=== PATIENT | male | born 1970 | race Caucasian/White ===

== ENCOUNTER 2021-11-17 12:16 | Outpatient (REF) | payer MEDICAID, SELFPAY ==
[2021-11-17 13:07] LABS: Influenza A PCR NEGATIVE (Negative); Influenza B PCR NEGATIVE (Negative); Resp Syncy Virus RNA Qual PCR NEGATIVE (Negative); SARS COV2 PCR INHOUSE POSITIVE (Negative)
== END 2021-11-17 12:17 | disposition home or self-care (01) ==
LOC: HO.LNP 12:16
PROVIDERS: Visit Provider Internal Medicine
DX: Z20.822 Contact with and (suspected) exposure to COVID-19 (principal); R51.9 Headache, unspecified
CPT/HCPCS: 0241U

== ENCOUNTER 2022-08-26 10:53 | Outpatient (REF) | payer MEDICAID, SELFPAY ==
[2022-08-26 11:56] LABS: Influenza A PCR NEGATIVE (Negative); Influenza B PCR NEGATIVE (Negative); Resp Syncy Virus RNA Qual PCR NEGATIVE (Negative); SARS COV2 PCR INHOUSE NEGATIVE (Negative)
== END 2022-08-26 10:54 | disposition home or self-care (01) ==
LOC: HO.LNP 10:53
PROVIDERS: Visit Provider Internal Medicine
DX: Z20.822 Contact with and (suspected) exposure to COVID-19 (principal)
CPT/HCPCS: 0241U

== ENCOUNTER 2023-04-14 11:49 | Outpatient (REF) | payer MEDICAID, SELFPAY ==
[2023-04-14 12:18] LABS: MANUAL DIFF FLAG NO
[2023-04-14 13:01] LABS: Basophils Percent Auto 0.4 % (0-2); Eosinophils Absolute Auto 0.2 X10*3/uL (0.0-0.4); Eosinophils Percent Auto 3.1 % (0-4); Hematocrit 44.2 % (42.0-52.0); Hemoglobin 15.2 g/dl (14.0-18.0); Imm Gran Abs Auto 0.06 X10*3/uL (0.00-0.03); Imm Gran Pct Auto 0.9 % (0.0-0.4); Lymphocytes Absolute Auto 1.3 X10*3/uL (1.2-4.9); Lymphocytes Percent Auto 18.4 % (20-40); Mean Corpuscular HGB Conc 34.4 g/dl (31.0-36.0); Mean Corpuscular Hemoglobin 29.9 pg (27.0-33.0); Mean Platelet Volume 11.1 fL (9.4-12.4); Monocytes Absolute Auto 0.6 X10*3/uL (0.1-1.2); Monocytes Percent Auto 8.3 % (2-11); Neutrophils Absolute Auto 4.7 x10*3/uL (2.0-8.3); Neutrophils Percent Auto 68.9 % (45-73); Platelet Count 195 X10*3/uL (160-400); Red Blood Count 5.08 X10*6/uL (4.60-5.80); White Blood Count 6.8 X10*3/uL (4.8-10.8)
[2023-04-14 13:13] LABS: Appearance Urine Clear; Color Urine Yellow; Glucose Urine UA Negative (Negative); Leukocyte Esterase Urine Negative (Negative); Nitrite Urine Negative (Negative); Urine Blood Negative (Negative); Urine Ketones Negative (Negative); Urine Protein Negative (Neg-Trace)
[2023-04-14 13:25] LABS: Alanine Aminotransferase 30 U/L (0-40); Albumin Level 3.9 g/dL (3.5-5.0); Alkaline Phosphatase 116 U/L (39-117); Anion Gap 13 (12-20); Aspartate Amino Transferase 22 U/L (5-37); Bilirubin Total 0.5 mg/dL (0.0-1.0); Blood Urea Nitrogen 13 mg/dL (9-16); Carbon Dioxide 25 mmol/L (22-29); Chloride 107 mmol/L (96-108); Cholesterol 177 mg/dL; Estimated Glomerular Filt Rate > 60; Glucose Random 145 mg/dL (60-115); Potassium 4.6 mmol/L (3.3-5.1); Sodium 140 mmol/L (135-145); Total Protein 6.6 g/dL (6.5-8.0)
== END 2023-04-14 11:50 | disposition home or self-care (01) ==
LOC: HO.LAB 11:49
PROVIDERS: PCP Internal Medicine; Visit Provider Internal Medicine
DX: M54.9 Dorsalgia, unspecified (principal); M54.2 Cervicalgia; R63.5 Abnormal weight gain; J44.9 Chronic obstructive pulmonary disease, unspecified; Z91.81 History of falling
CPT/HCPCS: 36415; 80053; 81003; 82465; 85025

== ENCOUNTER 2023-05-11 10:38 | Outpatient (REF) | payer MEDICAID, SELFPAY ==
--- NOTE | ~2023-05-11 | XR_ITS ---
EXAMINATION: XR PELVIS CLINICAL INFORMATION: Low back and joint pain. COMPARISON: None available. TECHNIQUE: AP view of the pelvis. FINDINGS: There is no evidence of acute fracture or diastasis of the pelvis. There are linear low-density regions seen about the intertrochanteric location of the proximal left femur but these do not appear to cross cortices and are probably related to overlying soft tissues. Clinical correlation with possible recent left hip trauma is recommended. Sacroiliac joints appear unremarkable. Hip joint spaces are maintained. There appears be some mild facet arthropathy bilaterally at the L5-S1 level. No abnormal lytic or sclerotic lesions are appreciated. XR/XR pelvis 1-2V IMPRESSION: No significant bony abnormalities of the pelvis. Linear lucency about the left proximal femur likely related to overlying soft tissues as described.
[2023-05-11 11:28] LABS: Estimated Average Glucose 100 mg/dL; Hemoglobin A1c % 5.1 %
[2023-05-11 12:01] LABS: Anion Gap 13 (12-20); Blood Urea Nitrogen 15 mg/dL (9-16); Calcium 9.3 mg/dL (8.4-10.2); Carbon Dioxide 24 mmol/L (22-29); Chloride 107 mmol/L (96-108); Estimated Glomerular Filt Rate > 60; Glucose Random 112 mg/dL (60-115); Potassium 4.3 mmol/L (3.3-5.1); Sodium 140 mmol/L (135-145)
== END 2023-05-11 10:39 | disposition home or self-care (01) ==
LOC: HO.LAB 10:38
PROVIDERS: PCP Internal Medicine; Visit Provider Internal Medicine
DX: M54.50 Low back pain, unspecified (principal); R73.03 Prediabetes; M53.3 Sacrococcygeal disorders, not elsewhere classified
CPT/HCPCS: 36415; 72170; 80048; 83036

== ENCOUNTER 2023-08-02 10:34 | Outpatient (AMB) | payer MEDICAID, SELFPAY ==
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
== END 2023-08-02 12:22 | disposition home or self-care (01) ==
PROVIDERS: PCP Internal Medicine; Visit Provider Physician Assistant
DX: S42.254A Nondisplaced fracture of greater tuberosity of right humerus, initial encounter for closed fracture (principal)
CPT/HCPCS: 99204

== ENCOUNTER 2023-08-02 11:17 | Outpatient (REF) | payer MEDICAID, SELFPAY ==
--- NOTE | ~2023-08-02 | XR_ITS ---
EXAMINATION: XR RIGHT HUMERUS, RIGHT ELBOW CLINICAL INFORMATION: Pain in unspecified elbow, humerus. COMPARISON: None available. TECHNIQUE: 4 views of the right elbow. 2 views of the right humerus. FINDINGS: Right humerus: There is an impacted, displaced, comminuted fracture involving the humeral head/neck. Right elbow: Tiny olecranon spur. 4 mm linear densities overlying the soft tissues along the soft tissues of the dorsal aspect of the upper forearm/elbow. Alignment preserved. XR/XR humerus RT IMPRESSION: 1. Impacted, displaced, comminuted fracture involving the humeral head/neck. 2. Possible foreign body along the soft tissues of the dorsal aspect of the upper forearm/elbow. Correlation with the clinical exam recommended. Additional imaging with CT scan or MRI should be considered for better visualization as these modalities are much more sensitive for detection of fracture or other underlying pathology. This study was presented today 08/03/2023 at 10:17 AM for interpretation. [facility] staff will provide results to referring provider at this time.
--- NOTE | ~2023-08-02 | XR_ITS ---
EXAMINATION: XR RIGHT HUMERUS, RIGHT ELBOW CLINICAL INFORMATION: Pain in unspecified elbow, humerus. COMPARISON: None available. TECHNIQUE: 4 views of the right elbow. 2 views of the right humerus. FINDINGS: Right humerus: There is an impacted, displaced, comminuted fracture involving the humeral head/neck. Right elbow: Tiny olecranon spur. 4 mm linear densities overlying the soft tissues along the soft tissues of the dorsal aspect of the upper forearm/elbow. Alignment preserved. XR/XR elbow RT min 3V IMPRESSION: 1. Impacted, displaced, comminuted fracture involving the humeral head/neck. 2. Possible foreign body along the soft tissues of the dorsal aspect of the upper forearm/elbow. Correlation with the clinical exam recommended. Additional imaging with CT scan or MRI should be considered for better visualization as these modalities are much more sensitive for detection of fracture or other underlying pathology. This study was presented today 08/03/2023 at 10:17 AM for interpretation. [facility] staff will provide results to referring provider at this time.
== END 2023-08-02 11:18 | disposition home or self-care (01) ==
LOC: HO.HOSX 11:17
PROVIDERS: Visit Provider Physician Assistant
DX: S42.254A Nondisplaced fracture of greater tuberosity of right humerus, initial encounter for closed fracture (principal); M25.521 Pain in right elbow
CPT/HCPCS: 73060; 73080; 99212

== ENCOUNTER 2023-08-03 13:15 | Outpatient (REF) | payer MEDICAID, SELFPAY ==
--- NOTE | ~2023-08-03 | CT_ITS ---
EXAMINATION: CT SHOULDER WITHOUT CONTRAST, RIGHT CLINICAL INFORMATION: M12.819 - Other specific arthropathies, not elsewhere classified, unspecified shoulder. Right shoulder pain. Fracture. COMPARISON: Radiograph dated 08/02/2023. TECHNIQUE: Multidetector volumetric imaging was obtained through the right shoulder without contrast. Multiplanar reformatted images in coronal and sagittal orientations were submitted. This CT examination was performed using dose optimization techniques as appropriate, variously including the following: *Automated exposure control *Adjustment of mA and/or kV according to patient size (this includes techniques or standardized protocols for targeted exams where dose is matched to indication/reason for exam; i.e. extremities or head) *Use of iterative reconstruction technique DLP: 283 mGy-cm FINDINGS: Again seen is a comminuted proximal humeral fracture with components at the humeral neck, greater tuberosity, and lesser tuberosity. The oblique humeral neck component is not significantly displaced. The lesser tuberosity fragment is displaced medially by 1.1 cm relative to the humeral head articular fragment resulting in an articular cortical step-off along the anterior aspect of the humeral head. The humeral head component appears impacted into the greater and lesser tuberosity fragments. At the greater tuberosity, there is posterior displacement of the more posterior fragment by 1.4 cm relative to the more anterior components of the greater tuberosity which remain connected to the lesser tuberosity fragment around the bicipital groove. No additional fractures are identified. No scapular fractures. The glenoid, acromion, and coracoid process are intact. Right clavicle is normal. Imaged right chest wall is intact. Rotator cuff musculature appears normal in bulk. There is edema in the surrounding fascial planes at the right shoulder with a trace effusion. No axillary adenopathy. Minimal centrilobular emphysema at the right apex with small areas of peripheral pleural parenchymal scarring. CT/CT shoulder RT wo IV con IMPRESSION: Comminuted proximal humeral fracture, likely a Neer three-part fracture due to displacement at the greater and lesser tuberosity fragments. The humeral neck component of the fracture is not significantly displaced.
== END 2023-08-03 13:16 | disposition home or self-care (01) ==
LOC: HO.CT 13:15
PROVIDERS: Visit Provider Physician Assistant
DX: M12.811 Other specific arthropathies, not elsewhere classified, right shoulder (principal)
CPT/HCPCS: 73200

== ENCOUNTER 2023-08-13 10:04 | Outpatient (AMB) | payer MEDICAID, SELFPAY ==
--- NOTE | 2023-08-13 10:07 | A.OFFVIS_ITS ---
Intake Vital Signs 08/13/23 10:13 Height 5 ft 9 in Weight 200 lb BMI 29.5 Intake Visit Reasons: OV - Rt humerus fx, DOI 07/21/23 Intake Note: Miguelito is a 52 year old right hand dominant male for a evaluation for his right humerus fx, DOI 07/21/23. Patient reports ongoing pain. He states off and on tingling when he moves it. Patient reports that when he was working he felt a nerve was pinched. Allergies No Known Allergies Allergy (Verified 08/13/23 10:07) HPI OV - Rt humerus fx, DOI 07/21/23 HPI Details 52-year-old right hand dominant male who presents in the office today for a follow up of a right greater tuberosity fracture and review of his CT scan. The injury occurred on 07/14/2023. The patient reports having ongoing pain. He confirms intermittent tingling with ROM. He states when he was working he felt the nerve pinching. He states he can feel sensation in his right hand but feels it goes numb intermittently. He states he has been off work for the and has had no relief in the right upper extremity. He confirms he has been working on gentle ROM. The patient expresses concerns about his right elbow. He states his elbow does not feel right. He confirms smoking a pack of cigarettes a day. 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 The patient states he never took the oxycodone. He would like to request a prescription for percocet. Review of Systems Const All systems reviewed & are unremarkable except as noted in HPI and below Physical Exam Vital Signs: BMI result Body Mass Index 29.5 Const General: cooperative, healthy appearing and no acute distress Orientation/consciousness: patient oriented x3 Resp Effort & Inspection: normal respiratory effort and able to speak in complete sentences Cardio Rate: regular rate Peripheral pulses: Peripheral pulses 2+ throughout GI Palpation (GI): Soft to palpation Skin General skin exam: no rashes or lesions noted Lesions: no lesions Rashes: no rashes Neuro General: patient oriented x3 Extrem Other: Right upper extremity: Circumferential edema extending around the bicep, Resolving ecchymosis bicep area. Able to flex and extend at the wrist. Able to perform wrist and hand ROM, including wrist extension and thumbs up. Slight forward flexion and abduction, but limited due to pain. Sensation intact. Radial pulse intact. Assessment & Plan Assessment & Plan (1) Fracture of greater tuberosity of right humerus: Code(s): S42.251A - Displaced fracture of greater tuberosity of right humerus, initial encounter for closed fracture Qualifiers: Encounter type: initial encounter Fracture alignment: nondisplaced Fracture type: closed Qualified Code(s): S42.254A - Nondisplaced fracture of greater tuberosity of right humerus, initial encounter for closed fracture Plan Mr. Barahona is a 52-year-old right hand dominant male who presents in the office today for a follow up of a right greater tuberosity fracture and review of his CT scan. The injury occurred on 07/14/2023. The patient reports having ongoing pain. He confirms intermittent tingling with ROM. He states when he was working he felt the nerve pinching. He states he can feel sensation in his right hand but feels it goes numb intermittently. He states he has been off work for the past week and has had no relief in the right upper extremity. He confirms he has been working on gentle ROM. The patient expresses concerns about his right elbow. He states his elbow does not feel right. He confirms smoking a pack of cigarettes a day. 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 The patient states he never took the oxycodone. He would like to request a prescription for percocet. Dr. Harris was available to see the patient with me while in the office today and a collaborative treatment plan was made. Dr. Harris discussed that the edema is causing his arm to feel off like the patient has been stating he feels. We discussed the role of conservative treatment verses surgical intervention. The patient states he would prefer not to have surgery. I sent in a prescription for percocet 5-325 mg PO daily PRN to be taken at bedtime. The patient was educated this prescription was a one time fill. Follow up will be in 4 weeks, or sooner if needed. X-rays of the right shoulder obtained while in the office today and reviewed by me, Helene Lambert PA-C, redemonstrated a right proximal humerus fracture. CT of the right shoulder, obtained on 08/03/2023, revealed: Comminuted proximal humeral fracture, likely a Neer three-part fracture due to displacement at the greater and lesser tuberosity fragments. The humeral neck component of the fracture is not significantly displaced. Orders: Orders XR shoulder RT min 2V Today M25.519 - Pain in unspecified shoulder Medications: New oxycodone-acetaminophen 5-325 mg (Percocet) Partial Fill upon patient request. 1 tab PO DAILY PRN 7 tabs 0RF pain 7 days Patient Instructions: Scribed for Helene Lambert PA-C by Nelly Mon medical transcription supervisor, on 08/13/2023 at 10:10 am, EST. Coding Level of Care Code Est Pt Level 4 (30969) Diagnoses Closed nondisplaced fracture of greater tuberosity of right humerus, initial encounter S42.254A Encounter type: initial encounter Fracture alignment: nondisplaced Fracture type: closed
[2023-08-13 10:13] VITALS: BMI 29.5
== END 2023-08-13 11:19 | disposition home or self-care (01) ==
PROVIDERS: PCP Internal Medicine; Visit Provider Physician Assistant
DX: S42.254A Nondisplaced fracture of greater tuberosity of right humerus, initial encounter for closed fracture (principal)
CPT/HCPCS: 99214

== ENCOUNTER 2023-08-13 10:04 | Outpatient (REF) | payer MEDICAID, SELFPAY ==
--- NOTE | ~2023-08-13 | XR_ITS ---
EXAMINATION: XR SHOULDER, RIGHT CLINICAL INFORMATION: Pain in shoulder. COMPARISON: Prior imaging studies including CT scan of the right shoulder July 2023 and x-ray of the right humerus 08/02/2023. TECHNIQUE: 2 AP views of the right shoulder. FINDINGS: The comminuted proximal humerus fracture redemonstrated with unchanged appearance and alignment. No callus formation identified. Persistent lateral displacement of the greater tuberosity fragment which extends into the proximal metaphysis of the humerus. Persistent displacement of the lesser tuberosity fragment. Acromioclavicular joint normal. Surrounding bone and soft tissues unremarkable. XR/XR shoulder RT min 2V IMPRESSION: No change in the appearance of the comminuted proximal humerus fracture.
== END 2023-08-13 10:05 | disposition home or self-care (01) ==
LOC: HO.HOSX 10:04
PROVIDERS: PCP Internal Medicine; Visit Provider Physician Assistant
DX: S42.254A Nondisplaced fracture of greater tuberosity of right humerus, initial encounter for closed fracture (principal); X58.XXXA Exposure to other specified factors, initial encounter; Y93.9 Activity, unspecified; Y92.9 Unspecified place or not applicable; Y99.9 Unspecified external cause status
CPT/HCPCS: 73030; 99212

== ENCOUNTER 2023-09-09 08:55 | Outpatient (AMB) | payer MEDICAID, SELFPAY ==
[2023-09-09 09:19] VITALS: BMI 29.5
--- NOTE | 2023-09-09 09:19 | A.OFFVIS_ITS ---
Intake Vital Signs 09/09/23 09:19 Height 5 ft 9 in Weight 200 lb BMI 29.5 Intake Visit Reasons: OV-Rt humerus fx, DOI 07/21/23 Intake Note: Miguelito is a 52 year old right hand dominant male who presents today for his follow up visit for his right humerus fx, DOI 07/21/23. Patient states he has tightness in the shoulder. Allergies No Known Allergies Allergy (Verified 09/09/23 09:21) HPI OV-Rt humerus fx, DOI 07/21/23 HPI Details 53-year-old male who presents in the off ice today for a follow up of a right greater tuberosity fracture which occurred on 07/14/2023. The patient reports he is doing pretty good. He states he did not get a call from physical therapy so he began to work on exercises at home. He states he has been working on a weight machine pushing and pulling. He states he does not have pain but does feel a tightness in the right shoulder. He states he is getting headaches from the Percocet. Review of Systems Const All systems reviewed & are unremarkable except as noted in HPI and below Physical Exam Vital Signs: BMI result Body Mass Index 29.5 Const General: cooperative, healthy appearing and no acute distress Resp Effort & Inspection: normal respiratory effort and able to speak in complete sentences Cardio Rate: regular rate Peripheral pulses: Peripheral pulses 2+ throughout GI Palpation (GI): Soft to palpation Skin Lesions: no lesions Rashes: no rashes Extrem Other: Right shoulder: Forward flexion to 100 degrees. Abduction to 80 degrees. Avoided external rotation. Sensation intact. Radial pulse intact. Assessment & Plan Assessment & Plan (1) Fracture of greater tuberosity of right humerus: Code(s): S42.251A - Displaced fracture of greater tuberosity of right humerus, initial encounter for closed fracture Qualifiers: Encounter type: initial encounter Fracture alignment: nondisplaced Fracture type: closed Qualified Code(s): S42.254A - Nondisplaced fracture of greater tuberosity of right humerus, initial encounter for closed fracture Plan: Mr. Barahona is a 53-year-old male who presents in the office today for a follow up of a right greater tuberosity fracture which occurred on 07/14/2023. The patient reports he is doing pretty good. He states he did not get a call from physical therapy so he began to work on exercises at home. He states he has been working on a weight machine pushing and pulling. He states he does not have pain but does feel a tightness in the right shoulder. He states he is getting headaches from the Percocet. I discussed with the patient that I would like for him to call me and let me know if he has issues with getting a hold of physical therapy. He was given my card while in the office today. He was educated on at home exercises that are appropriated to do with the weight machine that only work on ROM with no s trengthening at this time. He was given a prescription to take with him for the physical therapy facility he would like to attend in [place]. Follow up will be in 6 weeks with repeat x-rays, or sooner if needed. X-rays of the right shoulder obtained while in the office today and reviewed by me, Helene Lambert PA-C, revealed routine healing of a right great tuberosity fracture. Plan Mr. Barahona is a 53-year-old male who presents in the office today for a follow up of a right greater tuberosity fracture which occurred on 07/14/2023. The patient reports he is doing pretty good. He states he did not get a call from physical therapy so he began to work on exercises at home. He states he has been working on a weight machine pushing and pulling. He states he does not have pain but does feel a tightness in the right shoulder. He states he is getting headaches from the Percocet. I discussed with the patient that I would like for him to call me and let me know if he has issues with getting a hold of physical therapy. He was given my card while in the office today. He was educated on at home exercises that are appropriated to do with the weight machine. He was given a prescription to take with him for the physical therapy facility he would like to attend in [place]. Follow up will be in 6 weeks with repeat x-rays, or sooner if needed. X-rays of the right shoulder obtained while in the office today and reviewed by me, Helene Lambert PA-C, revealed routine healing of a right great tuberosity fracture. Orders: Orders XR shoulder RT min 2V Today M25.519 - Pain in unspecified shoulder PT Evaluation and Treatment Today S42.251A - Displaced fracture of greater tuberosity of right humerus, initial encounter for closed fracture Patient Instructions: Scribed for Helene Lambert PA-C by Nelly Mon medical laboratory scientist, on 09/09/2023 at 9:01 am, EST. Coding Level of Care Code Global (11800) Diagnoses Closed nondisplaced fracture of greater tuberosity of right humerus, initial encounter S42.254A Encounter type: initial encounter Fracture alignment: nondisplaced Fracture type: closed
== END 2023-09-09 09:32 | disposition home or self-care (01) ==
PROVIDERS: PCP Internal Medicine; Visit Provider Physician Assistant
DX: S42.254A Nondisplaced fracture of greater tuberosity of right humerus, initial encounter for closed fracture (principal)
CPT/HCPCS: 99213

== ENCOUNTER 2023-09-09 15:05 | Outpatient (REF) | payer MEDICAID, SELFPAY ==
--- NOTE | ~2023-09-09 | XR_ITS ---
EXAMINATION: XR SHOULDER, RIGHT CLINICAL INFORMATION: Pain in unspecified shoulder COMPARISON: 08/13/2023 TECHNIQUE: Three views of the right shoulder. FINDINGS: Redemonstration of a comminuted fracture of the proximal humerus with displacement of the greater tuberosity fragment extending into the proximal metaphysis of the humerus and displacement of the lesser tuberosity fragment. Fracture lines are still visible, but less conspicuous, suggesting some interval callus formation. XR/XR shoulder RT min 2V IMPRESSION: Healing comminuted fracture of the humeral head.
== END 2023-09-09 15:06 | disposition home or self-care (01) ==
LOC: HO.HOSX 15:05
PROVIDERS: Visit Provider Physician Assistant
DX: S42.251D Displaced fracture of greater tuberosity of right humerus, subsequent encounter for fracture with routine healing (principal); X58.XXXD Exposure to other specified factors, subsequent encounter; Z79.891 Long term (current) use of opiate analgesic
CPT/HCPCS: 73030; 99212

== ENCOUNTER 2023-10-21 09:33 | Outpatient (REF) | payer MEDICAID, SELFPAY ==
--- NOTE | ~2023-10-21 | XR_ITS ---
EXAMINATION: XR SHOULDER, RIGHT CLINICAL INFORMATION: Pain in unspecified shoulder. COMPARISON: 09/09/2023, 08/13/2023. TECHNIQUE: Three views of the right shoulder. FINDINGS: Multiple linear/wire-like devices overlie the soft tissues of the right upper arm/thorax. Correlation with clinical exam recommended to determine significance. Redemonstration of a comminuted fracture of the proximal humerus with displacement of the greater tuberosity fragment extending into the proximal metaphysis of the humerus and displacement of the lesser tuberosity fragment. The fracture lines are still visible with some callus formation. XR/XR shoulder RT min 2V IMPRESSION: Healing comminuted fracture of the humeral head.
== END 2023-10-21 09:34 | disposition home or self-care (01) ==
LOC: HO.HOSX 09:33
PROVIDERS: Visit Provider Physician Assistant
DX: S42.254A Nondisplaced fracture of greater tuberosity of right humerus, initial encounter for closed fracture (principal)
CPT/HCPCS: 73030; 99212

== ENCOUNTER 2023-10-21 13:10 | Outpatient (AMB) | payer MEDICAID, SELFPAY ==
--- NOTE | 2023-10-21 13:26 | MHC.OFFVIS ---
Intake Vital Signs 10/21/23 13:27 Height 5 ft 9 in Weight 200 lb BMI 29.5 Intake Visit Reasons: OV-Rt humerus fx, DOI 07/21/23-Xrays Intake Note: Miguelito is a 52 year old right hand dominant male who presents today for his follow up visit for his right humerus fx, DOI 07/21/23. Patient states he is doing well and has started P.T. Allergies No Known Allergies Allergy (Verified 10/21/23 13:27) HPI OV-Rt humerus fx, DOI 07/21/23-Xrays HPI Details 53-year-old right hand dominant male who presents in the office today for a follow up of a right greater tuberosity fracture which occurred on 07/14/2023. The patient states he is doing well. He confirms he has started physical therapy. Review of Systems Const All systems reviewed & are unremarkable except as noted in HPI and below Physical Exam Vital Signs: BMI result Body Mass Index 29.5 Const General: cooperative, healthy appearing and no acute distress Resp Effort & Inspection: normal respiratory effort and able to speak in complete sentences Cardio Rate: regular rate Peripheral pulses: Peripheral pulses 2+ throughout GI Palpation (GI): Soft to palpation Skin Lesions: no lesions Rashes: no rashes Extrem Other: Right shoulder: Forward flexion and abduction to 90 degrees. External rotation to 45 degrees. Able to reach back pocket. Able to reach the top of her head. NVI. Assessment & Plan Assessment & Plan (1) Fracture of greater tuberosity of right humerus: Code(s): S42.251A - Displaced fracture of greater tuberosity of right humerus, initial encounter for closed fracture Qualifiers: Encounter type: initial encounter Fracture alignment: nondisplaced Fracture type: closed Qualified Code(s): S42.254A - Nondisplaced fracture of greater tuberosity of right humerus, initial encounter for closed fracture Plan Mr. Barahona is a 53-year-old right hand dominant male who presents in the office today for a follow up of a right greater shoulder tuberosity fracture which occurred on 07/14/2023. The patient states he is doing well. He confirms he has started physical therapy. The patient will continue to work with physical therapy to maximize her ROM until she has completed all sessions. Then I would like for her to continue to work on the home exercise program. I offered the patient a follow up appointment in 6 weeks, however, at this time he is happy with his progress therefore he would like to defer at this time. Follow up will be PRN, or sooner if needed. X-rays of the right hip which were obtained while in the office today and were reviewed by me, Helene Lambert PA-C, revealed routine healing of a right greater shoulder tuberosity fracture. Orders: Orders XR shoulder RT min 2V 10/21/23 M25.519 - Pain in unspecified shoulder Patient Instructions: Scribed for Helene Lambert PA-C by Nelly Mon medical research assistant, on 10/21/2023 at 1:40 pm, EST. Coding Level of Care Code Global (86723) Diagnoses Closed nondisplaced fracture of greater tuberosity of right humerus, initial encounter S42.254A Encounter type: initial encounter Fracture alignment: nondisplaced Fracture type: closed
[2023-10-21 13:27] VITALS: BMI 29.5
== END 2023-10-21 14:05 | disposition home or self-care (01) ==
PROVIDERS: PCP Internal Medicine; Visit Provider Physician Assistant
DX: S42.254D Nondisplaced fracture of greater tuberosity of right humerus, subsequent encounter for fracture with routine healing (principal)
CPT/HCPCS: 99213

== ENCOUNTER 2024-02-15 10:07 | Outpatient (AMB) | payer MEDICAID, SELFPAY ==
--- NOTE | 2024-02-15 10:22 | A.OFFVIS_ITS ---
Intake Intake Visit Reasons: OV - right humerus fx, DOI 07/21/23 Intake Note: Miguelito is a 53 year old right hand dominant male who presets today for a follow of his right humerus fx, DOI 07/21/23. Patient reports that he noticed that his pain goes up to his neck when he is stretching his arm. He states that he is unable to sleep on his right side which woke him up. Patient noticed that his pain is causing him to have migraines. PT is not providing him with relief per patient. Allergies No Known Allergies Allergy (Verified 02/15/24 10:26) HPI OV - right humerus fx, DOI 07/21/23 HPI Details 53-year-old right hand dominant male who presents in the office today for a follow up of a right shoulder greater tuberosity fracture, which occurred on 07/14/2023. I last saw the patient in the office on 10/21/2023. At that time he was encouraged to continue to work with physical therapy to maximize his ROM and then to continue to work on the home exercise program. While in the office today the patient reports he notices his pain radiates to his neck when he is stretching his arm. He states he is unable to sleep at night due to the pain on the right side waking him up. He claims the shoulder pain is causing him to have migraines. He states PT is not giving him any relief. Review of Systems Const All systems reviewed & are unremarkable except as noted in HPI and below Physical Exam Const General: cooperative, healthy appearing and no acute distress Resp Effort & Inspection: normal respiratory effort and able to speak in complete sentences Cardio Rate: regular rate Peripheral pulses: Peripheral pulses 2+ throughout GI Palpation (GI): Soft to palpation Skin Lesions: no lesions Rashes: no rashes Extrem Other: Right shoulder: Forward flexion and abduction to 90 degrees. Pain with cross- body reach. Negative drop arm. NVI. Assessment & Plan Assessment & Plan (1) Fracture of greater tuberosity of right humerus: Code(s): S42.251A - Displaced fracture of greater tuberosity of right humerus, initial encounter for closed fracture Qualifiers: Encounter type: initial encounter Fracture alignment: nondisplaced Fracture type: closed Qualified Code(s): S42.254A - Nondisplaced fracture of greater tuberosity of right humerus, initial encounter for closed fracture Plan Mr. Barahona is a 53-year-old right hand dominant male who presents in the office today for a follow up of a right shoulder greater tuberosity fracture, which occurred on 07/14/2023. I last saw the patient in the office on 10/21/2023. At that time he was encouraged to continue to work with physical therapy to maximize his ROM and then to continue to work on the home exercise program. While in the office today the patient reports he notices his pain radiates to his neck when he is stretching his arm. He states he is unable to sleep at night due to the pain on the right side waking him up. He claims the shoulder pain is causing him to have migraines. He states PT is not giving him any relief. Patient is requesting an MRI at this time, which I have ordered today. I would like for him to follow up with Dr. Harris after the MRI is obtained. The patient would like to discuss possible surgical intervention to correct his ROM and pain. Follow up will be with Dr. Harris after the MRI is obtained, or sooner if needed. X-rays of the right shoulder which were obtained while in the office today and were reviewed by me, Helene Lambert PA-C, revealed evidence of healed greater tuberosity fracture. Orders: Orders XR shoulder RT min 2V Today M25.519 - Pain in unspecified shoulder MR shoulder RT wo con Today S42.201A - Unspecified fracture of upper end of right humerus, initial encounter for closed fracture, S42.251A - Displaced fracture of greater tuberosity of right humerus, initial encounter for closed fracture Patient Instructions: Scribed by Nelly Mon medical communication specialist, for Helene Lambert PA-C on 02/15/2024 at 10:17 am, EST. Coding Level of Care Code Est Pt Level 3 (69250) Diagnoses Closed nondisplaced fracture of greater tuberosity of right humerus, initial encounter S42.254A Encounter type: initial encounter Fracture alignment: nondisplaced Fracture type: closed
== END 2024-02-15 10:43 | disposition home or self-care (01) ==
PROVIDERS: PCP Internal Medicine; Visit Provider Physician Assistant
DX: S42.254A Nondisplaced fracture of greater tuberosity of right humerus, initial encounter for closed fracture (principal)
CPT/HCPCS: 99213

== ENCOUNTER 2024-02-15 11:13 | Outpatient (REF) | payer MEDICAID, SELFPAY ==
--- NOTE | ~2024-02-15 | XR_ITS ---
EXAMINATION: XR SHOULDER, RIGHT CLINICAL INFORMATION: Shoulder pain COMPARISON: 10/21/2023 TECHNIQUE: 2 views of the right shoulder. FINDINGS: Comminuted proximal humeral fracture again identified with slightly less conspicuous appearance of the subcapital fracture line. Greater tuberosity fragment displacement extending into the proximal metaphysis is stable in appearance. Humeral head remains seated in the glenoid. No acute fracture or dislocation. Visualized lung and ribs are unremarkable. XR/XR shoulder RT min 2V IMPRESSION: Healing comminuted proximal right humeral fracture.
== END 2024-02-15 11:14 | disposition home or self-care (01) ==
LOC: HO.HOSX 11:13
PROVIDERS: Visit Provider Physician Assistant
DX: S42.254D Nondisplaced fracture of greater tuberosity of right humerus, subsequent encounter for fracture with routine healing (principal); M25.511 Pain in right shoulder; X58.XXXD Exposure to other specified factors, subsequent encounter
CPT/HCPCS: 73030; 99212

== ENCOUNTER 2024-03-11 11:01 | Outpatient (REF) | payer MEDICAID, SELFPAY ==
--- NOTE | ~2024-03-11 | MR_ITS ---
EXAMINATION: MR SHOULDER WITHOUT CONTRAST, RIGHT CLINICAL INFORMATION: Displaced greater tuberosity, fracture right humerus. COMPARISON: Prior x-rays, including 02/15/2024. TECHNIQUE: MRI of the shoulder without contrast was performed on a high-field scanner. FINDINGS: ROTATOR CUFF: Mild supraspinatus tendinosis. Possible 2 mm intrasubstance tear in the distal posterior fibers. Infraspinatus, teres minor is intact. Mild-moderate subscapularis tendinosis, deep surface fraying. No muscle atrophy or fatty infiltration. BICEPS: Intact CORACOACROMIAL ARCH: The undersurface of the acromion is mildly curved with no subacromial spur. Mild acromioclavicular arthritis. LABRUM/CAPSULE: No labral tear is seen. Intact inferior capsule. GLENOHUMERAL JOINT/MARROW: Healing comminuted proximal humeral fracture, stable in position and alignment as compared to the prior radiographs. No significant chondral loss. No significant effusion. MR/MR shoulder RT wo con IMPRESSION: 1. Mild supraspinatus tendinosis. Possible 2 mm intrasubstance tear in the distal posterior fibers. 2. Mild-moderate subscapularis tendinosis, deep surface fraying. 3. Healing comminuted proximal humeral fracture. 4. Mild acromioclavicular arthritis.
== END 2024-03-11 11:02 | disposition home or self-care (01) ==
LOC: HO.MRI 11:01
PROVIDERS: PCP Internal Medicine; Visit Provider Physician Assistant
DX: S42.251A Displaced fracture of greater tuberosity of right humerus, initial encounter for closed fracture (principal); X58.XXXA Exposure to other specified factors, initial encounter; Y93.9 Activity, unspecified; Y92.9 Unspecified place or not applicable; Y99.9 Unspecified external cause status
CPT/HCPCS: 73221

== ENCOUNTER 2024-03-30 10:11 | Outpatient (AMB) | payer MEDICAID, SELFPAY ==
--- NOTE | 2024-03-30 10:35 | MHC.OFFVIS ---
Intake Visit Reasons: O/V right humerus fx, DOI 07/21/23 MRI rev Allergies No Known Allergies Allergy (Verified 02/15/24 10:26) HPI HPI O/V right humerus fx, DOI 07/21/23 MRI rev: Details: Miguelito is a 53 year old right hand dominant male who presets today for an MRI review of his right humerus fx, DOI 07/21/23. Patient reports that his pain is increasing, he had popping and grinding of the shoulder. He feels unable to sleep well at night has pain with overhead reaching. Physical Exam Const General: cooperative, healthy appearing and no acute distress Resp Effort & Inspection: normal respiratory effort and able to speak in complete sentences Cardio Rate: regular rate Peripheral pulses: Peripheral pulses 2+ throughout GI Palpation (GI): Soft to palpation Skin Lesions: no lesions Rashes: no rashes Extrem Other: There is 30/90/120/hip pocket Results Reviewed Results Reviewed: MR/MR shoulder RT wo con IMPRESSION: 1. Mild supraspinatus tendinosis. Possible 2 mm intrasubstance tear in the distal posterior fibers. 2. Mild-moderate subscapularis tendinosis, deep surface fraying. 3. Healing comminuted proximal humeral fracture. 4. Mild acromioclavicular arthritis. Assessment & Plan Assessment & Plan (1) Stiffness of right shoulder joint: Code(s): M25.611 - Stiffness of right shoulder, not elsewhere classified Category: Medical Plan: This is a 53-year-old gentleman with pain after a greater tuberosity fracture approximately 9 months ago. He is stiff and therapy and injections have not helped. I recommend surgical intervention. I discussed this with him. I recommend subacromial decompression and possible rotator cuff repair. (2) Subacromial impingement of right shoulder: Code(s): M75.41 - Impingement syndrome of right shoulder Category: Medical Plan: Patient is having signs and symptoms of rotator cuff impingement syndrome and his MRI shows a small partial-thickness rotator cuff tear. I recommend surgery for possible rotator cuff repair with subacromial decompression. I explained the risks of stiffness, infection, pain. He expressed understanding and we will proceed forward accordingly. Coding Level of Care Code Est Pt Level 4 (65546) Diagnoses Stiffness of right shoulder joint M25.611 Subacromial impingement of right shoulder M75.41
== END 2024-03-30 11:27 | disposition home or self-care (01) ==
PROVIDERS: PCP Internal Medicine; Referring Provider Internal Medicine; Visit Provider Orthopaedic Surgery
DX: M25.611 Stiffness of right shoulder, not elsewhere classified (principal); M75.41 Impingement syndrome of right shoulder
CPT/HCPCS: 99214

== ENCOUNTER → 2024-03-30 10:11 | Outpatient (BNVA) | payer MEDICAID, SELFPAY | PROVIDERS: PCP Internal Medicine; Visit Provider Orthopaedic Surgery | DX: M25.611 Stiffness of right shoulder, not elsewhere classified (principal); M75.41 Impingement syndrome of right shoulder | CPT/HCPCS: 99212 ==

== ENCOUNTER 2024-05-04 08:47 | Outpatient (AMB) | payer MEDICAID, SELFPAY ==
--- NOTE | 2024-05-04 09:07 | A.OFFVIS_ITS ---
Vital Signs 05/04/24 09:12 Height 5 ft 9 in Weight 202 lb BMI 29.8 Intake Visit Reasons: Preop RT RTC 05/10/24 NE Intake Note: Miguelito is a 53 year old male who presents today for a pre op appointment for his RT RTC 05/10/24 NE. Hx of having a collapsed lung about 5 years ago. Allergies No Known Allergies Allergy (Verified 05/04/24 09:08) HPI HPI Preop RT RTC 05/10/24 NE: Details: 53-year-old right hand dominant male who presents in the office today for his preoperative history and physical exam prior to a right shoulder rotator cuff repair to be performed on 05/10/[address] Jamison Harris. Patient has no known allergy history. Patient is currently taking, as follows: -Ibuprofen-acetaminophen 125-250 mg PO Q8H PRN Patient has a significant medical history, as follows: -Hx of a collapsed lung Patient has no known surgical history. 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 Review of Systems Const All systems reviewed & are unremarkable except as noted in HPI and below Physical Exam Vital Signs: BMI result Body Mass Index 29.8 Const General: cooperative, healthy appearing, comfortable, no acute distress, well developed, alert and awake Orientation/consciousness: patient oriented x3 HEENT Head: Yes normal to inspection, Yes normocephalic and Yes atraumatic Eyes General: appearance normal, both eyes and all related structures Neck Neck: Yes normal visual inspection and Yes no lymphadenopathy Resp Effort & Inspection: normal respiratory effort and able to speak in complete sentences Cardio Rate: regular rate Peripheral pulses: Peripheral pulses 2+ throughout GI Inspection: Yes normal to inspection Palpation (GI): Soft to palpation Skin General skin exam: no rashes or lesions noted Lesions: no lesions Rashes: no rashes Neuro General: patient oriented x3 Extrem Other: Right shoulder: Skin is clean, dry, and intact. Forward flexion and abduction to 90 degrees. Pain with cross-body reach. Negative drop arm. NVI. Psych Mental Status: mental status grossly normal Assessment & Plan Assessment & Plan (1) Stiffness of right shoulder joint: Code(s): M25.611 - Stiffness of right shoulder, not elsewhere classified Category: Medical (2) Subacromial impingement of right shoulder: Code(s): M75.41 - Impingement syndrome of right shoulder Category: Medical Plan Mr. Barahona is a 53-year-old right hand dominant male who presents in the office today for his preoperative history and physical exam prior to a right shoulder rotator cuff repair to be performed on 05/10/[address] Jamison Harris. Patient has no known allergy history. Patient is currently taking, as follows: -Ibuprofen-acetaminophen 125-250 mg PO Q8H PRN Patient has a significant medical history, as follows: -Hx of a collapsed lung Patient has no known surgical history. 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 We discussed the risks, benefits and alternatives to the surgery and the rehabilitation course. The risks include infection, bleeding, nerve injury, ongoing pain, swelling, and stiffness, perioperative risk of injury to bones and soft tissues, and blood clots. I have answered all questions and with their understanding they have consented to move forward with a right shoulder rotator cuff repair to be performed on 05/10/[address] Jamison Harris. The patient has declined taking oxycodone-acetaminophen and morphine due to how it makes him feel. Therefore, we have agreed to change his postoperative pain medication to tramadol and Tylenol. He is also able to take OTC ibuprofen. Post operative medications were sent to the pharmacy, tramadol 50 mg Q4-6H PRN and acetaminophen 650 mg PO Q6H PRN, while in the office today. The patient was instructed that he should obtain the prescription prior to surgery but should not consume until after the procedure; as these should only be taken for post operative pain management. Should the patient take these medications before surgery, a refill will not be sent to the pharmacy until their scheduled refill date. Follow-up will be at the post operative appointment on 05/17/2024 at 1:45 pm, or sooner if needed. Medications: New tramadol 50 mg PO Q4-6H PRN 42 tabs 0RF pain 7 days acetaminophen (Tylenol) 650 mg (2 x 325 mg) PO Q6H PRN 240 tabs 0RF fever or pain 30 days Patient Instructions: Scribed by Nelly Mon medical assistant per diem, for Helene Lambert PA-C on 05/04/2024 at 9:03 am, EST. Coding Level of Care Code Global (32119) Diagnoses Stiffness of right shoulder joint M25.611 Subacromial impingement of right shoulder M75.41
[2024-05-04 09:12] VITALS: BMI 29.8
== END 2024-05-04 09:45 | disposition home or self-care (01) ==
PROVIDERS: PCP Internal Medicine; Visit Provider Physician Assistant
DX: M25.611 Stiffness of right shoulder, not elsewhere classified (principal); M75.41 Impingement syndrome of right shoulder
CPT/HCPCS: 99024

== ENCOUNTER → 2024-05-04 08:47 | Outpatient (BNVA) | payer MEDICAID, SELFPAY | PROVIDERS: PCP Internal Medicine; Visit Provider Physician Assistant | DX: M25.611 Stiffness of right shoulder, not elsewhere classified (principal); M75.41 Impingement syndrome of right shoulder | CPT/HCPCS: 99212 ==

== ENCOUNTER 2024-05-10 05:34 | Day surgery (SDC) | payer MEDICAID, SELFPAY ==
[2024-05-08 07:05] VITALS: BMI 29.8
--- NOTE | 2024-05-08 14:41 | P.CONAN_ITS ---
Documented by User: Iris Carcamo NP 05/08/24 14:45 HPI - Anesthesia Eval Consult details Narrative: 53yo M for Right Arthroscopic Rotator Cuff Repair Smoker PMF Active Problems Active Problems: All Active Problems Subacromial impingement of right shoulder (Acute) Stiffness of right shoulder joint (Acute) Fracture of greater tuberosity of right humerus (Acute) Fracture of proximal end of right humerus (Acute) Past Medical History Medical History Current tobacco use Collapsed lung Social History Social History Alcohol intake: current Alcohol intake frequency: holidays/special occasions only Patient Tobacco Use Status: Current everyday Tobacco user Cigarette Packs Per Day: 1 Cigarettes Per Day: 20.0 Use of substances other than those prescribed or required for medical reasons: No Are you DNR?: No Advance Directives: No Advance Directives Information Provided: Yes Current occupational status: employed 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 Meds Allergies Allergy/AdvReac Type Severity Reaction Status Date / Time No Known Allergies Allergy Verified 05/04/24 09:08 Home Medications ?Medication ?Instructions ?Recorded ?Confirmed ?Last Taken ?Type ibuprofen 125 mg-acetaminophen 250 2 tab PO Q8H PRN 05/04/24 Unknown History mg tablet (Advil Dual Action) Exam Height,Weight and Vital Signs: Height 5 ft 9 in Weight 91.626 kg Assessment and Plan Assessment Anesthesia Assessment: Chart Reviewed Documented by User: Adelaide Higgins MD 05/10/24 08:24 PMFSH Past Medical History Medical History Current tobacco use Collapsed lung Family History Family history of problems with anesthesia: No Surgical History History of Problems with Anesthesia: No Social History Social History Alcohol intake: current Alcohol intake frequency: holidays/special occasions only Patient Tobacco Use Status: Current everyday Tobacco user Cigarette Packs Per Day: 1 Cigarettes Per Day: 20.0 Use of substances other than those prescribed or required for medical reasons: No Are you DNR?: No Advance Directives: No Advance Directives Information Provided: Yes Current occupational status: employed 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 Meds Allergies Allergy/AdvReac Type Severity Reaction Status Date / Time No Known Allergies Allergy Verified 05/04/24 09:08 Home Medications ?Medication ?Instructions ?Recorded ?Confirmed ?Last Taken ?Type ibuprofen 125 mg-acetaminophen 250 2 tab PO Q8H PRN 05/04/24 Unknown History mg tablet (Advil Dual Action) Exam Airway Mallampati Class: III TM Dist: >3cm Neck ROM: Full Heart: rrr Lungs: cta Assessment and Plan Assessment Anesthesia Assessment: Anesthesia Plan Discussed Final Anesthetic Review Family History of Problems with Anesthesia: No History of Problems with Anesthesia: No NPO: Yes ASA Class: III Final Preanesthetic Review: No Changes in Pt Med Stat, Meds/Allgs Chart Reviewed, Consent Obtained/Reviewed and Anes Risks/Benef Reviewed Patient Risk: Intermediate Procedure Risk: Intermediate Anesthetic Plan Anesthetic Plan: GA and Regional Block Disposition: Standard PACU
[2024-05-10 05:50] VITALS: BMI 29.5
[2024-05-10 06:23] VITALS: BP 112/71; PULSE 64; RESP 16; TEMP 36.3; O2SAT 96
[2024-05-10] MEDS: Lactated Ringers 1,000 ML 100 ML IVCONT (06:25)
--- NOTE | 2024-05-10 07:20 | MHC.SHP ---
Pre-Procedural Eval Section A - 24 Hr Update-Section A only Date of Service: 05/10/24 The patient is an INPATIENT: No Changes since office visit: No Cold of Flu in the past 2 weeks, No New Medical Problems, No Changes in Medication and No Patient answered all questions The patient has been examined within 24 hours of the surgical procedure. The History & Physical has been completed within 30 days and I have reviewed it.: Yes Section B - Complete if H&P > 30 days Chief Complaint: Complete rotator cuff tear or rupture of right victoria Allergies: Allergies Allergy/AdvReac Type Severity Reaction Status Date / Time No Known Allergies Allergy Verified 05/04/24 09:08 Plan I have reviewed the history and physical and performed a pertinent physical examination on my patient. No changes have occurred unless specified. Time Spent With Patient Time: Total time managing care of this patient today ____ minutes.
--- NOTE | 2024-05-10 09:07 | P.BOP_ITS ---
Brief Operative Note Date of Service: 05/10/24 Pre-op diagnosis: Right RTC tear Post-op diagnosis: other (right rtc tear, post traumatic stiffness) Procedure: rtc repair biceps tentotomy anterior interval release Implants: [employer] bioindcutive collagen patch Surgeon: Jamison Harris MD Anesthesia: GETA Was an Precision Lens [employer] Edger used for this Procedure?: Yes [employer] L[employer] Edger: Helene Lambert Estimated blood loss (mL): 25 IV fluids (mL): 750 Pathology: none sent Condition: stable Disposition: PACU
[2024-05-10 09:11] VITALS: BP 160/78; PULSE 82; RESP 18; TEMP 36.4; O2SAT 99
[2024-05-10 09:15] VITALS: BP 147/59; PULSE 76; RESP 18; O2SAT 95
[2024-05-10 09:20] VITALS: BP 133/72; PULSE 78; RESP 18; O2SAT 96
[2024-05-10 09:25] VITALS: BP 145/69; PULSE 71; RESP 15; O2SAT 95
[2024-05-10 09:40] VITALS: BP 117/54; PULSE 66; RESP 16; TEMP 36.4; O2SAT 95
--- NOTE | 2024-05-10 10:11 | PC.NURSE ---
PATIENT ALREADY HAS HIS PRESCRIPTION AT HOME.
--- NOTE | 2024-06-06 11:44 | P.OP_ITS ---
Operative Note Operative Note Date of Service: 05/10/24 Narrative: Date of Service: 05/10/24 Pre-op diagnosis: Right RTC tear Post-op diagnosis: other (right rtc tear, post traumatic stiffness) Procedure: rtc repair biceps tentotomy anterior interval release Implants: [employer] Regeneten bioindcutive collagen patch Surgeon: Jamison Harris MD Anesthesia: GETA Was an Component Inspector used for this Procedure?: Yes Component Inspector: Helene Lambert Estimated blood loss (mL): 25 IV fluids (mL): 750 Pathology: none sent Condition: stable Disposition: PACU Procedure in detail: Patient was brought to the operating room and placed the the beach chair position. All bony prominences were well padded and the limb was prepped and draped in standard sterile fashion. A time out was called to identify proper site, proper procedure and proper surgeon. IV antibiotics per weight were administered. I began by making a posterolateral stab incision with a 15 blade. A blunt trochar was placed into the glenohumeral joint and I insufflated the joint with saline and a 30 degree arthroscope was placed. I established an outside- in anterior portal just distal to the biceps tendon. I then began my inspection of the glenohumeral joint. There was a large degenerative SLAP tear at hte biceps anchor ( Type 2). There were minimal cartilage changes at the inferior glenoid without humeral head changes. There was a minimal undersurface RTC tear. The subcapularis was intact. I debrided the loose cartilage of the glenoid and the degenerative labral tearing and performed a biceps tenotomy. The anterior interval was synovitis. I debrided this with a combination of shaver and cautery wand. I then removed the trochar and entered the subacromial space. A direct lateral portal was then established and I performed a bursectomy. The cuff was then examined. There was a high grade bursal sided tear of the supra and infraspinatus. I elected, therefore, to place a medium Regeneten bioinductive colalge patch over the high grade bursal sided tear. Medial PEEEK eliezer and one lateral bone anchor were placed. I was satisfied with the location of the patch. I then performed a 5mm subacromial decompression wtih an oval dilcia. Once I was satisfied with the repair final images were captured and I removed all instrumentation. Portals were closed with nylon. Patient was placed in an abduction sling, extubated and brought to the recovery room in stable condition. There were no known complications.
== END 2024-05-10 10:24 | disposition home or self-care (01) ==
LOC: HO.SSS 05:34
PROVIDERS: PCP Internal Medicine; Visit Provider Orthopaedic Surgery
PROC: (CPT 29827; principal; 2024-05-10 07:30)
DX: M75.121 Complete rotator cuff tear or rupture of right shoulder, not specified as traumatic (principal); M75.41 Impingement syndrome of right shoulder; M25.611 Stiffness of right shoulder, not elsewhere classified; Z87.09 Personal history of other diseases of the respiratory system; Z79.1 Long term (current) use of non-steroidal anti-inflammatories (NSAID); F17.210 Nicotine dependence, cigarettes, uncomplicated
CPT/HCPCS: 29827; 29826; 29822; C1713; C1763; J0131; J0171; J0665; J0690; J1100; J2250; J2405; J2704; J3010

== ENCOUNTER → 2024-05-10 05:34 | Outpatient (BNV) | payer MEDICAID, SELFPAY | PROVIDERS: PCP Internal Medicine; Visit Provider Orthopaedic Surgery | DX: M75.111 Incomplete rotator cuff tear or rupture of right shoulder, not specified as traumatic (principal); S43.431A Superior glenoid labrum lesion of right shoulder, initial encounter | CPT/HCPCS: 29827 ==

== ENCOUNTER 2024-05-17 13:09 | Outpatient (AMB) | payer MEDICAID, SELFPAY ==
--- NOTE | 2024-05-17 13:36 | MHC.OFFVIS ---
Intake Visit Reasons: PO RT RTC 05/10/24 NE Intake Note: Miguelito a 53 year old male who presents today for a post operative right RTC on 05/10/24 with NE. Patient reports he is doing well, states no pain at the moment. States he d/c pain medication as it was causing acid reflux. Allergies No Known Allergies Allergy (Verified 05/17/24 13:45) Medication List - Last Reconciled 05/28/24 by Iban Bazan PA-C acetaminophen (Tylenol) 650 mg (2 x 325 mg) PO Q6H PRN 30 days ibuprofen-acetaminophen 125-250 mg (Advil Dual Action) 2 tabs PO Q8H PRN tramadol 50 mg PO Q4-6H PRN 7 days HPI HPI PO RT RTC 05/10/24 NE: Details: 53-year-old male who returns to the office today for post-op right RTC repair, 05/10/[address] Harris. He states he has no pain and is doing well overall. He has discontinued the pain medication as it was causing acid reflux. He has no other concerns today. 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 No redness or drainage. NVI. Results Reviewed Results Reviewed: Brief Operative Note Date of Service: 05/10/24 Pre-op diagnosis: Right RTC tear Post-op diagnosis: other (right rtc tear, post traumatic stiffness) Procedure: rtc repair biceps tentotomy anterior interval release Implants: [employer] Regeneten bioindcutive collagen patch Surgeon: Jamison Harris MD Assessment & Plan Assessment & Plan (1) Stiffness of right shoulder joint: Code(s): M25.611 - Stiffness of right shoulder, not elsewhere classified Category: Medical (2) Subacromial impingement of right shoulder: Code(s): M75.41 - Impingement syndrome of right shoulder Category: Medical Plan Sutures removed today, steri strips applied. He was given an order for physical therapy with collagen graft protocol. He will begin physical therapy and discontinue the sling. He will see me back in 4 weeks, sooner if needed. Orders: Orders PT Evaluation and Treatment 05/17/24 M75.41 - Impingement syndrome of right shoulder, M25.611 - Stiffness of right shoulder, not elsewhere classified Patient Instructions: Scribed for Iban Bazan PA-C, by Say Alejandre coroner/medical examiner, on 05/17/2024 at 1:45 PM EST.? I, Iban Bazan PA-C, have personally reviewed and agree with the information entered by the scribe. Coding Level of Care Code Global (32549) Diagnoses Stiffness of right shoulder joint M25.611 Subacromial impingement of right shoulder M75.41
== END 2024-05-17 14:52 | disposition home or self-care (01) ==
PROVIDERS: PCP Internal Medicine; Visit Provider Physician Assistant
DX: M25.611 Stiffness of right shoulder, not elsewhere classified (principal); M75.41 Impingement syndrome of right shoulder
CPT/HCPCS: 99024

== ENCOUNTER → 2024-05-17 13:09 | Outpatient (BNVA) | payer MEDICAID, SELFPAY | PROVIDERS: PCP Internal Medicine; Visit Provider Physician Assistant | DX: M25.611 Stiffness of right shoulder, not elsewhere classified (principal); M75.41 Impingement syndrome of right shoulder | CPT/HCPCS: 99212 ==

== ENCOUNTER 2024-06-05 12:29 | Outpatient (AMB) | payer MEDICAID, SELFPAY ==
--- NOTE | 2024-06-05 13:02 | MHC.OFFVIS ---
Vital Signs 06/05/24 13:07 Height 5 ft 9 in Weight 202 lb BMI 29.8 Intake Visit Reasons: PO RT RTC 05/10/24 NE-4 WK follow up Intake Note: Miguelito is a 53 year old right hand dominant male who presents today for a post operative follow up s/p Right RTC Repair 05/10/24. Patient reports that he has some tightening of the shoulder, he worked on active ROM and felt a significant pop of the shoulder which he says felt good but he has developed sharp pains of the shoulder. Allergies No Known Allergies Allergy (Verified 06/05/24 13:06) HPI HPI PO RT RTC 05/10/24 NE-4 WK follow up: Details: 4 weeks post op with pain since wednesday that is improving. Coward a sharp anterior shoulder pain. Is doing PT but still stiff. 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 Continue ER stretching with PT (2) Status post right rotator cuff repair: Code(s): Z98.890 - Other specified postprocedural states Category: Surgical Plan: Small repair RTC protocol Orders: Orders PT Evaluation and Treatment Today M25.611 - Stiffness of right shoulder, not elsewhere classified, Z98.890 - Other specified postprocedural states Medications: New omeprazole 10 mg PO DAILY 30 caps 0RF Coding Level of Care Code Global (17218) Diagnoses Stiffness of right shoulder joint M25.611 Status post right rotator cuff repair Z98.890
[2024-06-05 13:07] VITALS: BMI 29.8
== END 2024-06-05 13:22 | disposition home or self-care (01) ==
PROVIDERS: PCP Internal Medicine; Visit Provider Orthopaedic Surgery
DX: M25.611 Stiffness of right shoulder, not elsewhere classified (principal); Z98.890 Other specified postprocedural states
CPT/HCPCS: 99024

== ENCOUNTER → 2024-06-05 12:29 | Outpatient (BNVA) | payer MEDICAID, SELFPAY | PROVIDERS: PCP Internal Medicine; Visit Provider Orthopaedic Surgery | DX: Z47.89 Encounter for other orthopedic aftercare (principal); M25.611 Stiffness of right shoulder, not elsewhere classified; Z98.890 Other specified postprocedural states | CPT/HCPCS: 99212 ==

== ENCOUNTER 2024-09-04 12:29 | Outpatient (AMB) | payer MEDICAID, SELFPAY ==
--- NOTE | 2024-09-04 13:41 | A.OFFVIS_ITS ---
Intake Visit Reasons: PO- RT RTC 05/10/24 NE-4 WK follow up Intake Note: Miguelito is a 53 year old right hand dominant male who presents today for a follow up of his right shoulder s/p Right Rotator Cuff Repair 05/10/24. He has continued unchanged stiffness which was present preoperatively. Patient reports that he is still having some pain/cramping in the biceps, and has some tightness ni the elbow with lateral movements. He also explains that he is having numbness in the right hand while driving. Allergies No Known Allergies Allergy (Verified 06/05/24 13:06) HPI HPI PO- RT RTC 05/10/24 NE-4 WK follow up: Details: Miguelito is a 53 year old right hand dominant male who presents today for a follow up of his right shoulder s/p Right Rotator Cuff Repair 05/10/24. He has continued unchanged stiffness which was present preoperatively. Patient reports that he is still having some pain/cramping in the biceps, and has some tightness ini the elbow with lateral movements. He also explains that he is having numbness in the right hand . History cervical spondylo seen distant spine surgery. 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 There is forward flexion. Empty can. Negative Lovell. Subjectively diminished sensation over dorsum volar aspect of the right 3 digits and axial neck tenderness to palpation. Assessment & Plan Assessment & Plan (1) Status post right rotator cuff repair: Code(s): Z98.890 - Other specified postprocedural states Category: Surgical Plan: Miguelito is doing well status post rotator cuff repair but with persistent neck pain and numbness tingling with a history cervical disc disease. I think he is progressing well his shoulder he should continue physical therapy. Respect to his numbness and neck ordered a cervical spine MRI. (2) Right arm numbness: Code(s): R20.0 - Anesthesia of skin Category: Medical Plan: MRI ordered Orders: Orders MR cervical spine wo con Today R20.0 - Anesthesia of skin, Z98.890 - Other specified postprocedural states Coding Level of Care Code Global (48668) Diagnoses Status post right rotator cuff repair Z98.890 Right arm numbness R20.0
== END 2024-09-04 14:01 | disposition home or self-care (01) ==
PROVIDERS: PCP Internal Medicine; Visit Provider Orthopaedic Surgery
DX: M75.111 Incomplete rotator cuff tear or rupture of right shoulder, not specified as traumatic (principal); R20.0 Anesthesia of skin
CPT/HCPCS: 99213

== ENCOUNTER → 2024-09-04 12:29 | Outpatient (BNVA) | payer MEDICAID, SELFPAY | PROVIDERS: PCP Internal Medicine; Visit Provider Orthopaedic Surgery | DX: R20.0 Anesthesia of skin (principal); Z98.890 Other specified postprocedural states | CPT/HCPCS: 99212 ==

== ENCOUNTER → 2024-12-02 19:32 | Outpatient (BNV) | payer MEDICAID, SELFPAY | PROVIDERS: PCP Internal Medicine; Visit Provider Radiology Diagnostic Radiology | DX: M50.322 Other cervical disc degeneration at C5-C6 level (principal) | CPT/HCPCS: 72141 ==

== ENCOUNTER 2024-12-02 19:38 | Outpatient (REF) | payer MEDICAID, SELFPAY ==
--- NOTE | ~2024-12-02 | MR_ITS ---
CLINICAL HISTORY: Z98.890 - Other specified postprocedural states MR cervical spine without gadolinium Comparison: MR - MRI CERVICAL SPINE [id number] - 01/17/20 18:07 EST CR/SR - CERV SPINE 4 TO 5 VIEWS [id number] - 11/13/19 10:43 EST Findings: Bony alignment of the cervical vertebral bodies is anatomic. No line no fracture or prevertebral soft tissue swelling Craniocervical junction is within normal limits. No cord signal abnormality. Segmental analysis: C2-3: Negative. C3-4: Minimal posterior disc osteophyte complex. Central canal and neural foramina patent. C4-5: Broad-based disc osteophyte complex with a superimposed central disc protrusion. This is progressed since prior study. This causes indentation of the ventral thecal sac with slight flattening of the cervical spinal cord. Neural foramina are patent. C5-6: Broad-based disc osteophyte complex with a bilobed appearance. [id number] facet joint degenerative change. This combination results in moderate to scenario severe narrowing of the central canal as seen previously. Moderate left-sided and mild right-sided neural foraminal narrowing. C6-7: Broad-based disc osteophyte complex, asymmetric to the right. Central canal is patent. Severe right neural foraminal narrowing. [id number] left neural foraminal narrowing. C7-T1: Negative. IMPRESSION: Multilevel degenerative disc disease and degenerative facet disease as discussed above. This is most pronounced at C5-6 where there is moderate to severe central canal stenosis with bilateral neural foraminal narrowing. This document has been electronically signed by: Arron Cortez MD on 12/05/2024 06:29:01
== END 2024-12-02 19:39 | disposition home or self-care (01) ==
LOC: HO.MRI 19:38
PROVIDERS: PCP Internal Medicine; Visit Provider Orthopaedic Surgery
DX: R20.0 Anesthesia of skin (principal); Z98.890 Other specified postprocedural states
CPT/HCPCS: 72141

== ENCOUNTER 2025-05-21 13:21 | Outpatient (REF) | payer MEDICAID, SELFPAY ==
[2025-05-21 14:39] LABS: MANUAL DIFF FLAG NO
[2025-05-21 15:35] LABS: Hematocrit 42.6 % (42.0-52.0); Hemoglobin 15.0 g/dl (14.0-18.0); Imm Gran Abs Auto 0.03 X10*3/uL (0.00-0.03); Imm Gran Pct Auto 0.4 % (0.0-0.4); Lymphocytes Absolute Auto 1.3 X10*3/uL (1.2-4.9); Mean Corpuscular HGB Conc 35.2 g/dl (31.0-36.0); Mean Corpuscular Hemoglobin 29.6 pg (27.0-33.0); Mean Corpuscular Volume 84.2 fL (80.0-98.0); NRBC Abs Auto 0.000 X10*3/uL (0.0-0.012); NRBC Pct Auto 0.0 /100WBC (0.0-0.2); Platelet Count 218 X10*3/uL (160-400); Red Blood Count 5.06 X10*6/uL (4.60-5.80); White Blood Count 8.3 X10*3/uL (4.8-10.8)
[2025-05-21 16:11] LABS: Alanine Aminotransferase 27 U/L (0-40); Albumin Level 4.3 g/dL (3.5-5.0); Alkaline Phosphatase 91 U/L (39-117); Anion Gap 9 (12-20); Aspartate Amino Transferase 24 U/L (5-37); Blood Urea Nitrogen 12 mg/dL (9-16); Calcium 8.8 mg/dL (8.4-10.2); Carbon Dioxide 30 mmol/L (22-29); Chloride 105 mmol/L (96-108); Cholesterol 163 mg/dL (<200); Estimated Glomerular Filt Rate > 60; HDL Cholesterol 32 mg/dL (>40); Potassium 4.6 mmol/L (3.3-5.1); Sodium 139 mmol/L (135-145); Total Protein 6.7 g/dL (6.5-8.0); Triglycerides 230 mg/dL (<150)
[2025-05-21 16:28] LABS: Prostate Specific Antigen 0.98 ng/mL (<0.05-4.0)
== END 2025-05-21 13:22 | disposition home or self-care (01) ==
LOC: HO.LAB 13:21
PROVIDERS: PCP Physician Assistant; Visit Provider Physician Assistant
DX: K21.9 Gastro-esophageal reflux disease without esophagitis (principal); Z72.0 Tobacco use; Z12.11 Encounter for screening for malignant neoplasm of colon
CPT/HCPCS: 36415; 80048; 80061; 80076; 84153; 85025; 99212

== ENCOUNTER 2025-05-21 13:21 | Outpatient (AMB) | payer MEDICAID, SELFPAY ==
--- NOTE | 2025-05-21 13:30 | MHC.PC.OV ---
Vital Signs 05/21/25 13:32 05/21/25 13:35 Height 5 ft 9 in Weight 87.543 kg BMI 28.5 BP 118/74 Blood Pressure Location Lt brachial Position Sitting Respiration 16 Pulse 66 Pulse Source Pulse Oximeter Temp 97.3 F Pulse Oximetry (%) 97 Oxygen Delivery Method Room Air Intake Visit Reasons: routine - see comments Environmental Services Tech Required: No Accompanied by: Mother Allergies No Known Allergies Allergy (Verified 05/21/25 13:31) Medication List - Last Reconciled 05/21/25 by TABATHA Chen omeprazole 10 mg PO DAILY HPI HPI Comments History of Present Illness Details 54 year old male with history of gerd with is a current 1.5ppd cigarette smoker, long standing smoking history presents to the office accompanied by his mother for management of chronic conditions and to establish care. Gerd- stable on ppi Cigarette smoking- 1.5 ppd. has discontinued cigarettes in the past but was using vapes. Has never undergone lung cancer screening Concerns: None Health maintenance: Due for screening colonoscopy Due for PSA ROS: General: No fevers, malaise, unintentional weight loss HEENT: No blurred vision, diplopia. No sore throat, nasal congestion, rhinorrhea, sinus pain, ear pain Cardiovascular: No chest pain, palpitations, or leg edema Respiratory: No shortness of breath, wheezing, cough GI: No abdominal pain, nausea, vomiting, diarrhea, constipation, melena, hematochezia : No dysuria, hematuria, increased urinary frequency, decreased urinary output MSK: No myalgia, back pain Neuro: No headaches, weakness, paresthesias Skin: No rashes or lesions EXAM: Constitutional - Awake and Alert, No apparent distress Eyes - PERRL Cardiovascular - S1S2, RRR, No edema Respiratory - Normal lung expansion, Normal respiratory effort, No respiratory distress, CTA bilaterally Extremities - no calf tenderness bilaterally, no swelling Skin - Warm/Dry Neurological - Alert & oriented x3 Psychological - Appropriate affect [facility] Medical History (Updated 05/21/25 @ 13:57 by TABATHA Chen) GERD (gastroesophageal reflux disease) Current tobacco use Collapsed lung Social History Alcohol intake: current Alcohol intake frequency: holidays/special occasions only Patient Tobacco Use Status: Current everyday Tobacco user Cigarette Packs Per Day: 1 Cigarettes Per Day: 20.0 Current occupational status: employed 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 1. Little interest or pleasure in doing things: not at all 2. Feeling down, depressed, or hopeless: not at all 3. Trouble falling or staying asleep, or sleeping too much: not at all 4. Feeling tired or having little energy: more than half the days 5. Poor appetite or overeating: not at all 6. Feeling bad about yourself - or that you are a failure or have let yourself or your family down: not at all 7. Trouble concentrating on things, such as reading the newspaper or watching television: not at all 8. Moving or speaking so slowly that other people could have noticed. Or the opposite - being so fidgety or restless that you have been moving around a lot more than usual: not at all 9. Thoughts that you would be better off or of hurting yourself in some way: not at all Total score: 2 Source: Developed by Drs. Cameron Diaz, Angelica Devine, Oliverio Tan and colleagues, with an educational armani from [employer]. Thrive Questionnaire Date Thrive assessed: 05/21/25 I am a: Patient What is your living situation today?: I have a steady place to live Within the past 12 months, did the food you bought not last and you didn't have the money to get more?: Never true Within the past 12 months, did you worry whether your food would run out before you got money to buy more?: Never true Do you have trouble paying for medicines?: No Do you have trouble getting transportation to medical appointments?: No Do you have trouble paying your heating and electricity bill?: No Do you have trouble taking care of your child, family member or friend?: No Do you have trouble with day-to-day activities such as bathing, preparing meals, shopping, managing finances, etc.?: No Are you currently unemployed and looking for a job?: No Are you interested in more education?: No THRIVE Score: 0 JUDITH-7 AMB Questionnaire JUDITH-7 Date JUDITH - 7 assessed: 05/21/25 Feeling nervous, anxious, or on edge: 0 = Not at all Not being able to stop or control worryin = Not at all Worrying too much about different things: 0 = Not at all Trouble relaxin = Several days Being so restless that it is hard to sit still: 0 = Not at all Becoming easily annoyed or irritable: 0 = Not at all Feeling afraid as if something awful might happen: 0 = Not at all Total JUDITH-7 score (0-4 normal; 5-9 mild; 10-14 moderate; 15-21 severe): 1 Source: Developed by Drs. Cameron Diaz, Angelica Devine, Oliverio Tan and colleagues, with an educational armani from [employer]. Physical exam (Primary Care) Vital Signs: Last Vital Signs Temp 97.3 F 05/21/25 13:32 Pulse 66 05/21/25 13:32 Resp 16 05/21/25 13:35 BP 118/74 05/21/25 13:32 Pulse Ox 97 05/21/25 13:32 Oxygen Delivery Method Room Air 05/21/25 13:32 BMI result Body Mass Index 28.5 Tobacco/Smoking Status: Tobacco use Status Patient Tobacco Use Status Current everyday Tobacco 05/21/25 13:35 PHQ-9: PHQ-9 Score PHQ-9: Total score 2 05/21/25 13:59 Thrive Assessment: Date of Thrive Assessment Date Thrive assessed 05/21/25 05/21/25 13:38 Coding Level of Care Code New Pt Level 3 (33424) Complex EM visit Add On G2211 Diagnoses GERD (gastroesophageal reflux disease) K21.9 Current tobacco use Z72.0 Assessment & Plan Assessment & Plan (1) GERD (gastroesophageal reflux disease): Code(s): K21.9 - Gastro-esophageal reflux disease without esophagitis Category: Medical Plan: stable. continue ppi and avoid triggering food/drink items (2) Current tobacco use: Code(s): Z72.0 - Tobacco use Category: Social Hx Plan: Counseled on cessation, declines NRT. Counseled against vaping of any kind. Referred for lung cancer screenings Plan Follow up in 4 months. Labs to be completed following visit. Referred for lung cancer screening and colonoscopy. Orders: Orders Basic Metabolic Panel Today K21.9 - Gastro-esophageal reflux disease without esophagitis, Z72.0 - Tobacco use Liver Panel Today K21.9 - Gastro-esophageal reflux disease without esophagitis, Z72.0 - Tobacco use Complete Blood Count Auto Diff Today K21.9 - Gastro-esophageal reflux disease without esophagitis, Z72.0 - Tobacco use Lipid Panel Today K21.9 - Gastro-esophageal reflux disease without esophagitis, Z72.0 - Tobacco use Prostate Specific Antigen Today K21.9 - Gastro-esophageal reflux disease without esophagitis, Z72.0 - Tobacco use Referrals Lung Cancer Screening Referral Z72.0 - Tobacco use Gastroenterology Referral Z12.11 - Encounter for screening for malignant neoplasm of colon
[2025-05-21 13:32] VITALS: BP 118/74; PULSE 66; TEMP 36.3; O2SAT 97; BMI 28.5
[2025-05-21 13:35] VITALS: RESP 16
--- OUTSIDE RECORDS SUMMARY | 2025-05-21 13:44 | XMS_ITS | Clinical Summary ---
Author Organization [facility] Address [address] [place] [address] Phone Care Team Providers Care It Disaster Recovery Manager Name Role Phone Physician, No Pcp Primary Care Provider Unavaila ble Allergies No known active allergies Medications No known medications Encounters Date Type Department Care Team Description 03/05/2025 2:19 PM EDT - 03/05/2025 4:43 PM EDT Emergency [facility] Emergency [address] [place] [address] Discharge Disposition: Left Against Medical Advice from Last 3 Months Surgical History Surgery Date Site/Laterality Comments SHOULDER SURGERY Social History Tobacco Use Types Packs/Day Years Used Date Smoking Tobacco: Every Day Cigarettes Smokeless Tobacco: Former Tobacco Cessation:Ready to Q uit: Not Asked; Counseling Given: Not Answered Alcohol Use Standard Drinks/Week Comments Never 0 (1 standard drink = 0.6 oz pur e alcohol) Sex and Gender Information Value Date Recorded Sex Assigned at Male 03/05/2025 4:34 PM EDT Legal Sex Male 8:31 PM EST Gender Identity Male 03/05/2025 4:34 PM EDT Sexual Orientation Straight 03/05/2025 4: 34 PM EDT Obstetrics History Last Filed Vital Signs Vital Sign Reading Time Taken Comments Blood Pressure 147/79 03/05/2025 2:22 PM EDT Pulse 84 03/05/2025 2:22 PM EDT Temperature 36.5 C (97.7 F) 03/05/2025 2:22 PM EDT Respiratory Rate 18 03/05/2025 2:22 PM EDT Oxygen Saturation 99% 03/05/2025 2:22 PM EDT Inhaled Oxygen Concentration - - Weight 88.9 kg (196 lb) 03/05/2025 2:22 PM EDT Height 175.3 cm (5' 9 ) 03/05/2025 2:22 PM EDT Body Mass Index 28.94 03/05/2025 2:22 PM EDT Plan of Treatment Health Maintenance Due Date Last Done Comments DTaP,Tdap,and Td Vaccines (1 - Tdap) 1989 Hepatitis B Vaccines (1 of 3 - 19+ 3-dose series) 1989 Pneumococcal Vaccine: 50+ Ye ars (1 of 2 - PCV) 1989 Pneumococcal Vaccine: Pediat rics (0 to 5 Years) and At-Risk Patients (6 to 49 Years) (1 of 2 - PCV) 1989 Zoster Vaccines (1 of 2) 2020 Cholesterol Screening (Lipid Panel) 10/17/2022 Colorectal Cancer Screening: Colonoscopy 10/17/2022 Depression Screening 10/17/2022 HIV Screening 10/17/2022 Hepatitis C Screening 10/17/2022 Social Influencers of Health Screening 10/17/2022 COVID-19 Vaccine (2023-2 5 season) 2024 Influenza Vaccine (#1) 2025 HIB Vaccines Aged Out No longer eligi ble based on patient's age to complete this topic HPV Vaccines Aged Out No longer eligi ble based on patient's age to complete this topic Hepatitis A Vaccines Aged Out No long er eligible based on patient's age to complete this topic IPV Vaccines Aged Out No longer eligi ble based on patient's age to complete this topic MMR Vaccines Aged Out No longer eligi ble based on patient's age to complete this topic Meningococcal ACWY Vaccine Aged Out N o longer eligible based on patient's age to complete this topic Meningococcal B Vaccine Aged Out No l onger eligible based on patient's age to complete this topic RSV Immunization Patients Un luciana 20 months Aged Out No longer eligible b ased on patient's age to complete this topic Varicella Vaccines Aged Out No longer eligible based on patient's age to complete this topic Procedures Procedure Name Priority Date/Time Associated Diagnosis Comments CBC WITH AUTO DIFFERENTIAL STAT 03/05/2025 3:00 PM EDT LIPASE STAT 03/05/2025 3:00 PM EDT COMPREHENSIVE METABOLIC PANEL STAT 03/05/2025 3:00 PM EDT CBC AND DIFFERENTIAL STAT 03/05/2025 3:00 PM EDT from Last 3 Months Results * CBC auto differential (03/05/2025 3:00 PM EDT) [facility] WBC 7.7 4.8 - 10.8 K/mcL LAB HEMETOLOGY METHOD 03/05/2025 3:26 PM EDT [facility] RBC 5.00 4.50 - 5.50 M/mcL LAB HEMETOLOGY METHOD 03/05/2025 3:26 PM EDT [facility] Hemoglobin 14.5 13.5 - 17.5 g/dL LAB HEMETOLOGY METHOD 03/05/2025 3:26 PM EDT [facility] Hematocrit 42.9 42.0 - 54.0 % LAB HEMETOLOGY METHOD 03/05/2025 3:26 PM EDT [facility] MCV 86.7 79.0 - 98.0 FL LAB HEMETOLOGY METHOD 03/05/2025 3:26 PM EDT [facility] MCH 29.3 27.0 - 32.0 pcg LAB HEMETOLOGY METHOD 03/05/2025 3:26 PM EDT [facility] MCHC 33.8 32.0 - 37.0 g/dL LAB HEMETOLOGY METHOD 03/05/2025 3:26 PM EDT [facility] RDW 13.0 11.0 - 15.0 % LAB HEMETOLOGY METHOD 03/05/2025 3:26 PM EDT [facility] Platelets 202 130 - 400 K/mcL LAB HEMETOLOGY METHOD 03/05/2025 3:26 PM EDT [facility] MPV 10.8 7.0 - 11.0 FL LAB HEMETOLOGY METHOD 03/05/2025 3:26 PM EDT [facility] NRBC 0.0 <1.0 % LAB HEMETOLOGY METHOD 03/05/2025 3:26 PM EDT [facility] NRBC Absolute 0.00 <0.10 K/mcL LAB [facility]OLOG[facility] Relative 72.6 % LAB HEMETOLOGY METHOD 03/05/2025 3:[address] [facility] Lymphocytes Relative 16.9 % LAB HEMETOLOGY METHOD [facility] Monocytes Relative 8.1 % LAB HEMETOLOGY METHOD 03/05/2025 3:[address] [facility] Eosinophils Relative 1.8 % LAB HEMETOLOGY METHOD 03/05/2025 3:[address] [facility] Basophils Relative 0.3 % LAB HEMETOLOGY METHOD 03/05/2025 3:[address] [facility] Immature Granulocytes Relative 0.3 % LAB HEMETOLOGY METHOD 03/05/2025 3:[address] [facility] Neutrophils Absolute 5.62 1.50 - 7.00 K/mcL LAB HEMETOLOGY METHOD 03/05/2025 3:[address] [facility] Lymphocytes Absolute 1.31 1.00 - 5.00 K/mcL LAB HEMETOLOGY METHOD 03/05/2025 3:[address] [facility] Monocytes Absolute 0.63 0.20 - 1.00 K/mcL LAB HEMETOLOGY METHOD 03/05/2025 3:[address] [facility] Eosinophils Absolute 0.14 0.00 - 0.50 K/mcL LAB HEMETOLOGY METHOD 03/05/2025 3:[address] [facility] Basophils Absolute 0.02 0.00 - 0.20 K/mcL LAB HEMETOLOGY METHOD 03/05/2025 3:[address] [facility] Immature Granulocytes Absolute 0.02 0.00 - 0.03 K/mcL LAB HEMETOLOGY METHOD 03/05/2025 3:26 PM EDT [facility] Blood Venous blood specimen / Unknown Venipuncture / Unknown 03/05/2025 3:00 PM EDT 03/05/2025 3:12 PM EDT us Will Lainez MD LAB BLOOD ORDERABLES Final Resu lt Performing Organization Address [facility]/ZIP Co de Phone Number [facility] [address] [place] [address], [place] [phone] * Lipase (03/05/2025 3:00 PM EDT) [facility] Lipase 16 13 - 75 unit/L LAB CHEMISTRY METHOD 03/05/2025 4:23 PM EDT [facility] Blood Venous blood specimen / Unknown Venipuncture / Unknown 03/05/2025 3:00 PM EDT 03/05/2025 3:12 PM EDT us Will Lainez MD LAB BLOOD ORDERABLES Final Resu lt Performing Organization Address [facility] [[email or web address]] de Phone Number [facility] [address] [place] [address], [place] [phone] * (ABNORMAL) Comprehensive metabolic panel (03/05/2025 3:00 PM EDT) [facility] Sodium 138 133 - 145 mmol/L LAB CHEMISTRY METHOD 03/05/2025 4:31 PM EDT [facility] Potassium 4.4 3.5 - 5.5 mmol/L LAB CHEMISTRY METHOD 03/05/2025 4:31 PM EDT [facility] Chloride 106 96 - 110 mmol/L LAB CHEMISTRY METHOD 03/05/2025 4:31 PM EDT [facility] CO2 26 21 - 32 mmol/L LAB CHEMISTRY METHOD 03/05/2025 4:31 PM EDT [facility] Anion Gap 6 3 - 11 LAB CHEMISTRY METHOD 03/05/2025 4:[address] [facility] Glucose 116(H) 70 - 100 mg/dL LAB CHEMISTRY METHOD 03/05/2025 4:[address] [facility] BUN 14 5 - 25 mg/dL LAB CHEMISTRY METHOD 03/05/2025 4:[address] [facility] Creatinine 0.78 0.70 - 1.30 mg/dL LAB CHEMISTRY METHOD 03/05/2025 4:[address] [facility] eGFR 106 >=60 mL/min/1. 73m2 LAB CHEMISTRY METHOD 03/05/2025 4:[address] [facility] Comment:Calculation based on the Chronic Kidney Disease Epidemiology Collaboration (CKD-EPI) equation refit without adjustment for race. BUN/Creatinine Ratio 17.9 LAB CHEMISTRY METHOD 03/05/2025 4:[address] [facility] Calcium 9.2 8.5 - 10.5 mg/dL LAB CHEMISTRY METHOD 03/05/2025 4:[address] [facility] AST (SGOT) 14 10 - 42 unit/L LAB CHEMISTRY METHOD 03/05/2025 4:[address] [facility] ALT (SGPT) 29 10 - 60 unit/L LAB CHEMISTRY METHOD 03/05/2025 4:[address] [facility] Alkaline Phosphatase 95 42 - 121 unit/L LAB CHEMISTRY METHOD 03/05/2025 4:[address] [facility] Total Protein 6.5 6.0 - 8.0 g/dL LAB CHEMISTRY METHOD 03/05/2025 4:[address] [facility] Albumin 3.6 3.2 - 5.0 g/dL LAB CHEMISTRY METHOD 03/05/2025 4:[address] [facility] Total Bilirubin 0.6 0.0 - 1.4 mg/dL LAB CHEMISTRY METHOD 03/05/2025 4:31 PM EDT [facility] Blood Venous blood specimen / Unknown Venipuncture / Unknown 03/05/2025 3:00 PM EDT 03/05/2025 3:12 PM EDT us Will Lainez MD LAB BLOOD ORDERABLES Final Resu lt [facility] [address] [place] [address], from Last 3 Months Insurance MEDICAID - [place] Care Teams It Disaster Recovery Manager Relationship Specialty Start Date End Date Physician, No Pcp PCP - General 03/05/25
--- OUTSIDE RECORDS SUMMARY | 2025-05-21 13:44 | XMS_ITS | Clinical Summary ---
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 Role Phone Unavailable Primary Care Provider Unavailabl e Encounters Date Type Department Care Team Description 03/29/2025 Population Health Risk Score Former[facility] Care [facility] (C3) Department [address] [place] [address] Provider, Population Health Generic from Last 3 Months Social History Tobacco Use Types Packs/Day Years Used Date Smoking Tobacco: Never Assessed Sex and Gender Information Value Date Recorded Sex Assigned at Not on file Legal Sex Male 2:09 AM EDT Gender Identity Not on file Sexual Orientation Not on file Plan of Treatment Health Maintenance Due Date Last Done Comments CT Colonography 1970 Colonoscopy 1970 Colorectal Cancer Screening 1970 Depression Screening 1970 FIT DNA/Cologuard 1970 FIT 1970 FOBT 1970 HIV Screening 1970 Lipid Panel 1970 SDOH Screening 1970 Sigmoidoscopy 1970 Disability Screening 1970 Alcohol/Substance Use Screening 1982 Tobacco Screening 1982 Hepatitis C Screening 1988 DTaP/Tdap/Td Vaccines (1 - Tdap) 1989 Hepatitis B Vaccines (1 of 3 - 19+ 3-dose series) 1989 Pneumococcal Vaccine: 50+ Ye ars (1 of 1 - PCV) 2020 Zoster Vaccines (1 of 2) 2020 COVID-19 Vaccine ( - 2023-2 5 season) 2024 Influenza Vaccine (#1) 2025 RSV Patients and Pa tients Aged 60 years or older (1 - 1-dose 75+ series) 2045 HIB Vaccines Aged Out No longer eligi [...] patient's age to complete this topic Meningococcal Vaccine Aged Out No david kayla eligible based on patient's age to complete this topic RSV under 20 months Aged Out No longe r eligible based on patient's age to complete this topic Rotavirus Vaccines Aged Out No longer eligible based on patient's age to complete this topic
== END 2025-05-21 15:02 | disposition home or self-care (01) ==
PROVIDERS: PCP Internal Medicine; Visit Provider Physician Assistant
DX: K21.9 Gastro-esophageal reflux disease without esophagitis (principal); Z72.0 Tobacco use